=== PATIENT | male | born 1970 | race Caucasian/White ===

== ENCOUNTER 2023-02-20 20:22 | Observation (INO) | payer OTHER, SELFPAY ==
[2023-02-20 20:33] VITALS: BP 131/71; PULSE 69; RESP 18; TEMP 36.7; O2SAT 98; BMI 30.8
--- NOTE | 2023-02-20 20:36 | ED.GENADULT ---
HPI - General Adult General Chief complaint: Abdominal Pain Stated complaint: R side abd pain, sent from [facility] for CT Time Seen by Provider: 02/20/23 20:27 History of Present Illness HPI narrative: 53-year-old otherwise healthy gentleman presents to [facility] complaining of abdominal pain that began at 1:00 a.m. last night. He notes he had dinner around 8:00 p.m. and began having epigastric pain that turned into right upper quadrant pain that over the ensuing 18 hours is now localizing into the right lower quadrant. Evaluation at [facility] included blood work showing normal chemistries but white count at 18.3 an urinalysis that was unremarkable. Bedside ultrasound was obscured by gas and gallbladder was not easily seen. He sent over to [facility] for further evaluation in anticipation of abdominal CT scan. On arrival in the emergency department, history is stated is confirmed. Noted that his pain is definitely now localizing to the right lower quadrant it has progressively gotten worse over the intervening time frame. He is had multiple episode of dry heaves but no actual vomitus. Had 4 smaller bowel movements over the course of today that did not relieve his pain. There was no blood noticed in the stool. He is not complaining of chest pain, dyspnea, palpitations, headaches but does note that he is had some chills without fever Related Data Previous Rx's Medication Instructions Recorded docusate sodium 100 mg capsule 100 mg PO BID #30 caps 02/21/23 ibuprofen 400 mg tablet 800 mg PO Q6HR #30 tabs 02/21/23 oxycodone-acetaminophen 5 mg-325 2 tab PO Q6HR PRN Pain, Moderate 02/21/23 mg tablet (4-6) #20 tabs Allergies Allergy/AdvReac Type Severity Reaction Status Date / Time No Known Drug Allergies Allergy Verified 02/20/23 20:33 Review of Systems Review of Systems Narrative: Remainder of complete review of systems is otherwise unremarkable except for that included in the HPI. Patient History Social History household members: spouse Smoking Status: Never smoker alcohol intake: never Exam Initial Vital Signs Initial Vital Signs: Vital Signs Temperature 98.1 F 02/20/23 20:33 Pulse Rate 69 02/20/23 20:33 Respiratory Rate 18 02/20/23 20:33 Blood Pressure 131/71 02/20/23 20:33 Pulse Oximetry 98 02/20/23 20:33 Oxygen Delivery Method Room Air 02/20/23 20:33 General: Healthy appearing, in no acute distress. Able to give a complete and coherent history. Well-nourished well-developed HEENT: Moist mucous membranes, normal sclera with reactive pupils, Neck: No JVD, supple Respiratory: Lungs are clear to auscultation, no wheezing no rales no rhonchi. Full and symmetrical air movement Cardiac: Regular rate and rhythm no murmurs no bruits Abdomen: Soft, tenderness in the right lower quadrant closer to the anterior iliac crest than deep in the pelvis. No significant epigastric or left upper quadrant tenderness. Minor tenderness in the right upper quadrant that actually causes the right lower quadrant pain. Good bowel tones, no flank pain Skin: Warm and dry, no rashes Neurologic: Grossly neurologically intact with no obvious asymmetries or abnormalities Extremities: No trauma, well perfused Psych: Cooperative, appropriate insight and affect Course Orders Ordered: Acetaminophen (Acetaminophen 325 Mg Tablet) 325 mg PO Q6H PRN PRN Reason: Pain, Moderate (4-6) Acetaminophen (Acetaminophen 325 Mg Tablet) 650 mg PO Q6H PRN PRN Reason: Fever/Mild Pain (0-3) Docusate Sodium (Docusate 100 Mg Capsule) 100 mg PO BID [facility] Last Admin: 02/21/23 21:09 Dose: Not Given Documented By: Admin: 02/21/23 12:24 Dose: 100 mg Documented By: ABIMAEL Enoxaparin Sodium (Enoxaparin 40 Mg/0.4 Ml Syringe) 40 mg SUBCUT DAILY [facility] Last Admin: 02/21/23 09:28 Dose: Not Given Documented By: ABIMAEL Hydromorphone HCl (Hydromorphone 1 Mg Inj) 1 mg IV Q2H PRN PRN Reason: Pain, Severe (7-10) Hydromorphone HCl (Hydromorphone 0.5 Mg Inj) 0.5 mg IV Q2H PRN PRN Reason: Pain, Moderate (4-6) Last Admin: 02/21/23 04:30 Dose: 0.5 mg Documented By: ANDREE Sodium Chloride (Normal Saline 0.9%) 1,000 mls @ 125 mls/hr IV CONT [facility] Last Admin: 02/21/23 20:13 Dose: 125 mls/hr Documented By: Infusion: 02/21/23 19:39 Dose: 125 mls/hr Documented By: Admin: 02/21/23 11:39 Dose: 125 mls/hr Documented By: Infusion: 02/21/23 05:42 Dose: 125 mls/hr Documented By: Admin: 02/20/23 21:42 Dose: 125 mls/hr Documented By: SHAINA Ibuprofen (Ibuprofen 400 Mg Tablet) 800 mg PO Q6HR [facility] Last Admin: 02/22/23 00:37 Dose: 800 mg Documented By: Admin: 02/21/23 17:04 Dose: Not Given Documented By: Admin: 02/21/23 12:24 Dose: 800 mg Documented By: ABIMAEL Naloxone HCl (Naloxone 0.4 Mg/Ml Vial) 0.2 mg IV Q2MIN PRN PRN Reason: Opiate Reversal Ondansetron HCl (Ondansetron 4 Mg/2 Ml Inj) 4 mg IV Q4HR PRN PRN Reason: Nausea And Vomiting Last Admin: 02/21/23 04:40 Dose: 4 mg Documented By: ANDREE Oxycodone/Acetaminophen (Oxycodone/Acetaminophen 5/325 Tablet) 1 tab PO Q6HR PRN PRN Reason: Pain, Mild (1-3) Oxycodone/Acetaminophen (Oxycodone/Acetaminophen 5/325 Tablet) 2 tab PO Q6HR PRN PRN Reason: Pain, Moderate (4-6) Discontinued Medications Acetaminophen (Acetaminophen 325 Mg Tablet) 975 mg PO Q6H [facility] Last Admin: 02/21/23 06:18 Dose: 975 mg Documented By: Admin: 02/21/23 04:47 Dose: Not Given Documented By: Admin: 02/20/23 22:55 Dose: 975 mg Documented By: ANDREE Acetaminophen (Acetaminophen 325 Mg Tablet) 975 mg PO Q6H PRN PRN Reason: pain Bupivacaine HCl (Bupivacaine 0.5% (Pf) 30 Ml Vial) 30 ml INJ NOW ONE Stop: 02/21/23 09:35 Last Admin: 02/21/23 09:34 Dose: 30 ml Documented By: ASCENCION Epinephrine HCl (Epinephrine 1 Mg/Ml) 0.15 mg INJ NOW ONE Stop: 02/21/23 09:33 Last Admin: 02/21/23 11:31 Dose: Not Given Documented By: ABIMAEL Hydromorphone HCl (Hydromorphone 0.5 Mg Inj) 0.5 mg IV Q15MIN PRN PRN Reason: Pain, Hydromorphone HCl (Hydromorphone 2 Mg Inj) 0 mg IV Q5M PRN PRN Reason: Pain, Severe (7-10) Hydromorphone HCl (Hydromorphone 2 Mg Inj) 0 mg IV Q5M PRN PRN Reason: Pain, Moderate (4-6) Hydromorphone HCl (Hydromorphone 2 Mg Inj) 0 mg IV Q5MIN PRN PRN Reason: Pain, Mild (1-3) Piperacillin Sod/Tazobactam (Sod 3.375 gm/ Sodium Chloride) 100 mls @ 25 mls/hr IV Q8H SUPRIYA Piperacillin Sod/Tazobactam (Sod 3.375 gm/ Sodium Chloride) 100 mls @ 25 mls/hr IV Q8H SUPRIYA Stop: 02/22/23 05:00 Last Admin: 02/22/23 00:36 Dose: 25 mls/hr Documented By: Infusion: 02/21/23 19:15 Dose: 0 mls/hr Documented By: Admin: 02/21/23 15:13 Dose: 25 mls/hr Documented By: Infusion: 02/21/23 10:52 Dose: 0 mls/hr Documented By: Infusion: 02/21/23 09:38 Dose: 25 mls/hr Documented By: Admin: 02/21/23 09:23 Dose: 25 mls/hr Documented By: Infusion: 02/21/23 03:53 Dose: 25 mls/hr Documented By: Admin: 02/20/23 23:53 Dose: 25 mls/hr Documented By: Piperacillin Sod/Tazobactam (Sod 4.5 gm/ Sodium Chloride) 100 mls @ 25 mls/hr IV Q8H SUPRIYA Sodium Chloride (Normal Saline 0.9%) 1,000 mls @ 1,000 mls/hr IV BOLUS ONE Stop: 02/21/23 07:16 Last Infusion: 02/21/23 13:24 Dose: 0 mls/hr Documented By: Admin: 02/21/23 06:20 Dose: 1,000 mls/hr Documented By: ANDREE Lactated Ringer's (Lactated Ringers) 1,000 mls @ 42 mls/hr IV CONT [facility]PR[facility] Last Admin: 02/21/23 10:53 Dose: 42 mls/hr Documented By: Infusion: 02/21/23 10:52 Dose: 0 mls/hr Documented By: Admin: 02/21/23 10:10 Dose: 42 mls/hr Documented By: Infusion: 02/21/23 10:10 Dose: 42 mls/hr Documented By: Admin: 02/21/23 08:52 Dose: 42 mls/hr Documented By: ISSAC Ketorolac Tromethamine (Ketorolac 30 Mg/Ml Vial) 30 mg IV Q6H [facility] Stop: 02/25/23 22:28 Last Admin: 02/21/23 11:43 Dose: 30 mg Documented By: Admin: 02/21/23 04:28 Dose: 30 mg Documented By: Admin: 02/20/23 22:56 Dose: 30 mg Documented By: ANDREE Ondansetron HCl (Ondansetron 4 Mg/2 Ml Inj) 4 mg IV Q4HR PRN PRN Reason: nausea Ondansetron HCl (Ondansetron 4 Mg/2 Ml Inj) 4 mg IV NOW PRN PRN Reason: Nausea And Vomiting Oxycodone HCl (Oxycodone Ir 5 Mg Tablet) 5 mg PO PACUNOW PRN PRN Reason: Mild or moderate pain Medical Decision Making Lab Data 02/21/23 12:20 Labs: Urine Dip Bedside Urine Glucose Negative Bedside Urine Bilirubin - Negative Bedside Urine Ketone +/- 5 Urine Specific [place] 1.025 Bedside Urine Occult Blood - Negative Bedside Urine pH 6 Bedside Urine Protein - Negative Bedside Urine Urobilinogen - Negative Bedside Urine Nitrite - Negative Bedside Urine Leukocytes - Negative Esterase Point of care testing: Urine Dip Bedside Urine Glucose Negative Bedside Urine Bilirubin - Negative Bedside Urine Ketone +/- 5 Urine Specific [place] 1.025 Bedside Urine Occult Blood - Negative Bedside Urine pH 6 Bedside Urine Protein - Negative Bedside Urine Urobilinogen - Negative Bedside Urine Nitrite - Negative Bedside Urine Leukocytes - Negative Esterase MDM Narrative Medical decision making narrative: CC: Right lower quadrant pain, acute on diagnosed with uncertain prognosis Data collected from: patient, Social determinants of health that may influence the patients condition: Does live on Wednesday Medical records reviewed: From ER visit earlier this morning at [facility] with blood work and physician note reviewed Differential considered: Appendicitis, pyelonephritis, kidney stone, cholecystitis, constipation, other inflammatory bowel finding Exam documented above, pertinent findings include: Not toxic but is increasingly tender in the right lower quadrant without rebound or guarding. Lab Test results independently reviewed as above. Pertinent findings: Labs reviewed from Wednesday and indicate a CBC consistent with white count at 18.3 and hemoglobin of 15.3. Chemistries are unremarkable specifically bilirubin alkaline phosphatase AST ALT are all normal. Lipase is normal Urinalysis is unremarkable specifically no hemoglobin EKG does not show any acute changes Imaging studies independently reviewed: CT study is positive for acute appendicitis with 0.8 cm appendicolith appreciated. No signs of acute perforation. Consultations:Dr Hickman, accepts admit Treatments: Patient was given a L of fluid, IV Zofran and IV Zosyn prior to arrival at [place] emergency department Discussion: Findings of acute appendicitis or discussed with patient and his . Plans for admission explained as well as probability surgery later in the day. Questions are answered and he is safe for transfer to the floor Discharge Plan Departure Patient Disposition: Admitted As Inpatient Clinical Impression: Appendicitis Admit Date/Time: 02/20/23 21:30 Admit Provider: Angy Hickman
--- NOTE | 2023-02-20 20:44 | DI.CT.S_ITS ---
PROCEDURE: CT ABDOMEN PELVIS W CON INDICATIONS: RLQ abd pain TECHNIQUE: After the administration of intravenous contrast, axial sections acquired from the lung bases to the pubic symphysis. Coronal and sagittal reformats were performed. For radiation dose reduction, the following was used: automated exposure control, adjustment of mA and/or kV according to patient size. COMPARISON: None. FINDINGS: Image quality: Excellent. Lung bases: Unremarkable. Heart: No significant findings. ABDOMEN: Liver: Unremarkable. Gallbladder: Normal. Biliary ducts: Unremarkable. Pancreas: Unremarkable. Spleen: Unremarkable. Adrenal Glands: Unremarkable. Kidneys and Ureters: Unremarkable. Stomach and Bowel: Stomach, small bowel loops, and colon are unremarkable. Peritoneum: No abnormal intraperitoneal fluid. No free air. Ventral Wall: No hernias. Abdominal Nodes: No retroperitoneal or mesenteric adenopathy by size criteria. Vessels: Aorta and inferior vena cava are normal in size. PELVIS: Pelvic Organs: Unremarkable. Bladder: Unremarkable. Pelvic Nodes: No enlarged lymph nodes. Miscellaneous: No hernias are seen. At the right lower quadrant the appendix is dilated by fluid measuring up to 1.2 cm in diameter and there is a proximal appendicolith measuring up to 8 mm within the base of the appendix. There is no sign of periappendiceal abscess. Bones: Unremarkable. IMPRESSION: Acute appendicitis without evidence of early perforation in this setting of significant distension of the appendix and presence of a appendicoliths at the appendiceal base. Findings immediately called to the emergency room physician caring for the patient. Dictated by: Javid Morales M.D. on 02/20/2023 at 21:19 Approved by: Javid Morales M.D. on 02/20/2023 at 21:22
[2023-02-20] MEDS: SODIUM CHLORIDE 0.9% 1,000 ML 125 ML IV (21:42)
[2023-02-20 22:09] LABS: COVID19 -Nasal RAPID Negative (Negative)
[2023-02-20 22:10] VITALS: BP 121/65; PULSE 66; RESP 19; TEMP 36.2; O2SAT 99
[2023-02-20 22:11] VITALS: BMI 30.8
[2023-02-20] MEDS: ACETAMINOPHEN 325 MG TABLET 975 MG PO (22:55)
[2023-02-20] MEDS: KETOROLAC 30 MG/ML VIAL IV (22:56)
[2023-02-20] MEDS: PIPERACILLIN/TAZO 3.375 GM in SODIUM CHLORIDE 0.9% 100 ML IV (23:53)
[2023-02-21] VITALS (21 sets, daily range): BP systolic 85–138; BP diastolic 40–78; PULSE 62–98; RESP 11–24; TEMP 36.7–39.5; O2SAT 91–99; BMI 30.8
[2023-02-21] MEDS: KETOROLAC 30 MG/ML VIAL IV ×2 (04:28→11:43)
[2023-02-21] MEDS: HYDROMORPHONE 0.5 MG INJ IV (04:30)
[2023-02-21] MEDS: ONDANSETRON 4 MG/2 ML INJ IV (04:40)
--- NOTE | 2023-02-21 04:51 | PC.NURSE ---
pt admitted preop for Appendicitis, oriented to Room and Routine, A&OX4, RA independendent ambulation. pt is c/o moderate pain to RLQ and stated he had been very nauseous until medicated with Zofran. IV NS @125/hr with intermittent IV ABX pordered. Pt medicated with Tylenol and ibuprofen with good relief of discomfort . Pt slept for several hours hours. Pt awoke to go to bathroom and on the way back to the bed the pt began to shiver and has severe back spasm. Pt called the RN who medicated with Scheduled Toradol and 0.5mg IVP Diluadid. Pt then became Nauseous and was medicated to Zofran with good relief. pt resting comfortably at this time.
[2023-02-21] MEDS: ACETAMINOPHEN 325 MG TABLET 975 MG PO (06:18)
[2023-02-21] MEDS: SODIUM CHLORIDE 0.9% 1,000 ML 1000 ML IV (06:20)
--- NOTE | 2023-02-21 08:40 | PC.NURSE ---
Day shift: Pt off unit for procedure at approx 0840.
--- NOTE | 2023-02-21 08:46 | P.HP_ITS ---
History of Present Illness History of Present Illness Date Patient Seen: 02/21/23 Time Patient Seen: 08:46 Chief complaint: R side abd pain, sent from [facility] for [place] Narrative: Healthy 53-year-old male presents to the emergency room with 1 day of abdominal pain. Last night he awoke from sleep and felt sick like he had ?ate something lousy? he had a bowel movement at that time but he did not get any relief from his pain with that. Around 3:00 a.m. the same day he woke up again and started dry heaving and was really nauseous until about 11:00 a.m. when the pain became so intense that he decided around 1:00 p.m. to go to the hospital. He states that the pain started sort of in the middle and localized to the right lower quadrant around 10:00 a.m. or so. He is never had any pain like this before. Although at least 10 years ago he thought maybe he was having some issues with his gallbladder and had some pain in his right upper quadrant on occasion. However he states that he has not had anything like that for at least 10 years and has no other food sensitivities or digestive issues. He is healthy takes no medications has no allergies and has had surgery on his wrist knee and biceps. He has no family history of bleeding or blood clotting disorders or problems with anesthesia. [facility] Social History household members: spouse Smoking Status: Never smoker Meds Home Medications and Allergies Allergies Allergy/AdvReac Type Severity Reaction Status Date / Time No Known Drug Allergies Allergy Verified 02/20/23 20:33 Exam Vital Signs (past 8 hours): - 02/21/23 04:48 02/21/23 05:43 02/21/23 06:12 Temperature 98.2 F 103.1 F H 102.2 F H Pulse Rate 98 H 88 86 Respiratory Rate 22 18 24 Blood Pressure 138/78 94/44 L 97/43 L Pulse Oximetry 98 92 97 Oxygen Delivery Method Oxygen Flow Rate 0 2 2 02/21/23 06:00 02/21/23 06:18 02/21/23 06:40 Temperature 102.5 F H 100.6 F H Pulse Rate 86 Respiratory Rate 18 Blood Pressure 87/41 L Pulse Oximetry 92 Oxygen Delivery Method Oxygen Flow Rate 2 02/21/23 07:33 Temperature Pulse Rate Respiratory Rate Blood Pressure Pulse Oximetry 95 Oxygen Delivery Method Room Air Oxygen Flow Rate Oxygen Delivery Method Room Air Oxygen Flow Rate 2 Const General: cooperative, healthy appearing and comfortable Orientation: alert, awake and oriented x3 HENMT Head: normal to inspection Eyes General: appearance normal, both eyes and all related structures Resp Effort & Inspection: normal respiratory effort and able to speak in complete sentences GI Palpation: soft and tender (Right lower quadrant tenderness to palpation.) Extrem General: normal to inspection Objective Labs Labs: Laboratory Results - last 24 hr 02/20/23 21:40 SARS-CoV-2 (PCR) Negative Assessment & Plan Assessment and plan (1) Appendicitis: Status: Acute Assessment & Plan narrative: I discussed the risks benefits and alternatives of laparoscopic appendectomy including but not limited to bleeding infection need for further hospitalizations or procedures. Injury to organs requiring 2nd operation to repair a complication. I also discussed the occasional need to create an open incision. He understands all of these risks and would like to proceed. He also understands that IV antibiotics can be used to treat appendicitis but would like to proceed with surgery. His is at the bedside and has heard this entire discussion and is in agreement with the plan.
[2023-02-21] MEDS: LACTATED RINGERS 1,000 ML 42 ML IV ×3 (08:52→10:53)
[2023-02-21] MEDS: PIPERACILLIN/TAZO 3.375 GM in SODIUM CHLORIDE 0.9% 100 ML IV ×2 (09:23→15:13)
--- NOTE | 2023-02-21 09:29 | SUR.OPER ---
Supine on padded OR bed, head on pillow, arms padded and tucked at sides, legs uncrossed, safety belt at thigh, tape over blanket over lower legs .
[2023-02-21] MEDS: BUPIVACAINE 0.5% (PF) 30 ML VIAL INJ (09:34)
--- NOTE | 2023-02-21 10:45 | PATH_ITS ---
[facility] Accession Number: [id number] No. of containers..01 Tissue . 01 Material submitted: . appendix - APPENDIX . 01 Clinical history: . R SIDE ABD PAIN, SENT FROM [facility] FOR CT . 01 Diagnosis: Vermiform Appendix, Appendectomy: Acute transmural appendicitis and periappendicitis. Negative for neoplasia. [facility] 02/24/2023 1650 Local . 01 Electronically signed: . Venessa Albert MD, Pathologist NPI- [id number] . 01 Gross description: . The specimen is received in formalin labeled with the patient's name, , and appendix, and consists of a vermiform appendix measuring 8.3 x 0.9 cm with a large amount of mesoappendix extending out to 3.5 cm. The margin is received closed with guilherme, which are removed, and the margin is inked blue. The serosa is correa to brown and smooth with adherent correa material consistent with exudate. Sectioning reveals a patent lumen filled with red-brown semi-solid material and ranging from 0.3 to 0.5 cm in diameter. The currie are correa to brown, grossly intact, and average 0.2 cm thick. Body Stylist sections to include the margin, one-half of the bisected distal tip, and cross section are submitted in cassette A1. ([id number]) /MRV 02/23/2023 1431 Local . 01 Pathologist provided ICD-10: K35.80 . 01 CPT . 001892 Specimen Comment: A courtesy copy of this report has been sent to [facility] Pathology Performed at: 01 [facility] [address] [place] [address] [address], [place], [place] [id number] MD Raghu Luis MD Phone: [phone]
--- NOTE | 2023-02-21 11:27 | PC.NURSE ---
Day shift: Back in room from PACU at approx 1120. A&Ox4. The 3 lap sites CDI. Denies nausea. Reports ABD pain /. SO in room for support. Will continue with post-op plan of care.
[2023-02-21] MEDS: SODIUM CHLORIDE 0.9% 1,000 ML 125 ML IV ×2 (11:39→20:13)
[2023-02-21] MEDS: IBUPROFEN 400 MG TABLET 800 MG PO (12:24)
[2023-02-21] MEDS: DOCUSATE 100 MG CAPSULE PO (12:24)
[2023-02-21 12:45] LABS: Estimated Glomerular Filt Rate > 60 mL/min (>60)
--- NOTE | 2023-02-21 13:46 | CM.DANOTE ---
Patient is a 53 yo male who was admitted on 02/20/23 for Abd Pain. Pt has [employer] for insurance and his PCP is not listed. EMR was reviewed. Per Surgeon, pt recommendation is Lap Appe and pt agreeable and off the floor for surgical intervention this morning around 0900. Per RN, pt returned to floor and pain seems managed and has supportive spouse bedside. SW met briefly bedside with pt and explained role and he confirms that he lives with his on Wednesday and is active and independent at baseline and does not use DME and no hx of HH or SNF. Pt does not anticipate any needs and states spouse can assist if needed at d/c. Preference is home when medically stable. Plan; SW to follow closely for plan of likely d/c home via spouse POV when medically stable and any further identified discharge planning needs. NADER Cramer Discharge Planning/Care Management CM Discharge Assessment Start: 02/21/23 13:45 Freq: Status: Active Protocol: Document 02/21/23 13:45 BF (Rec: 02/21/23 13:46 BF [id number]) Discharge Planning Assessment Assigned Reel And Rewinder Operator NADER Helton DPOA/Assigned Designee Name informally spouse Sandro Contact Information [phone] Advance Directives? No Advance Directives on File No History Provided By Patient,Family Member,Medical Record Has Patient been admitted in last 30 No days? Prior Living Arrangements House Household Members spouse Type of transporation used prior to Drives own vehicle admit Independent with ADL's Yes Is patient alert and oriented? Yes Caregiver for Another No Barriers to Discharge No Discharge Plan Home Transportation Arrangement spouse bedside Referrals Initiated None needed Additional Comment Pending progress from Shirley Marche Whiteboard Updated in Patient Room with Yes name and ext. # of Reel And Rewinder Operator Review Status In Process Please Provide Date Initial DC 02/21/23 Assessment Was Performed Next Review Type Continued Stay Review
--- NOTE | 2023-02-21 16:30 | P.OP_ITS ---
Operative Date/Time/Diagnoses Date of procedure: 02/21/23 Pre-op diagnosis: Acute appendicitis Post-op diagnosis: same Procedure & Clinicians Procedure: Laparoscopic appendectomy Same procedure as scheduled: Yes Surgeon: Angy Hickman Click Yes if Unassisted: Yes Anesthesia Type: General Operative Notes Findings: Acutely inflamed appendix. Photograph obtained. Specimen(s): other (Appendix) Procedure in detail: Patient was taken to the operating room and placed supine on the operating room table with left arm tucked. Time-out was performed and general endotracheal anesthesia was induced after placing bilateral SCDs and providing IV antibiotics. The abdomen was then prepped and draped in the usual sterile fashion. Local anesthetic was infused above the umbilicus and an 11 blade sca lpel was used to carry this incision down through subcutaneous tissue. The anterior abdominal wall fascia was doubly clasped with Sophie retractor and entered sharply with an 11 blade scalpel under direct visualization. Two 0 Vicryl stay sutures on UR6 needle were placed. The Matilde trocar was then introduced into the abdomen and the abdomen was insufflated. The 5 mm 30 degree scope was introduced and the abdomen was inspected. At the beginning of the case there was some small bowel seemingly adhered to the anterior abdominal wall near by the Matilde trocar. There was no evidence of entry injury. There was fluid in the abdomen and there was inflammatory process occurring in the right lower quadrant. At this time additional accessory 5 mm trocars were placed after infusing local anesthesia under direct visualization in the suprapubic and left lateral positions. Graspers were then used to explore the right lower quadrant and the appendix was easily identified anteriorly. Was markedly inflamed but the base of the appendix looked good. The mid area and the tip were markedly inflamed and a photograph was taken. A window was created at the base of the appendix and laparoscopic stapler was placed through this window to come across the base of the appendix. Next a laparoscopic stapler with a vascular load was used to come across the appendiceal mesentery. A 2nd load was needed to complete this. The appendix was then placed in an Endo-Catch bag and removed through the umbilical port site. The remainder of the abdomen was inspected and a Ray-Elo was placed into the abdomen to soak up some blood and fluid and removed. The staple lines appeared hemostatic and that bowel loop had fallen down in the interim and it was inspected very carefully with the laparoscope but appeared normal. No other evidence of injuries or other concerns were apparent. The accessory trocars were then removed under direct visualization and the abdomen was desufflated. The Matilde trocar was removed and an additional 0 Vicryl suture with a [id number] was placed between the 2 previously placed stay sutures. These were tied to close the fascial defect. The skin was closed with running 4-0 Monocryl and dressed with Steri-Strips. Patient tolerated the procedure well and went in good condition to the postoperative care unit EBL was minimal and there were no complications.
[2023-02-22] VITALS: BP 93/47; PULSE 80; RESP 18; TEMP 36.9; O2SAT 98
[2023-02-22 00:10] VITALS: BP 95/52; PULSE 78
[2023-02-22] MEDS: PIPERACILLIN/TAZO 3.375 GM in SODIUM CHLORIDE 0.9% 100 ML IV (00:36)
[2023-02-22] MEDS: IBUPROFEN 400 MG TABLET 800 MG PO (00:37)
[2023-02-22 05:00] VITALS: BP 95/53; PULSE 56; RESP 16; TEMP 36.6; O2SAT 99
[2023-02-22 07:00] VITALS: O2SAT 99
[2023-02-22 08:00] VITALS: BP 102/56; PULSE 53; RESP 16; TEMP 36.2; O2SAT 99
--- NOTE | 2023-02-22 09:41 | P.DS_ITS ---
History of Present Illness History of Present Illness Date Patient Seen: 02/22/23 Time Patient Seen: 09:42 Chief complaint: R side abd pain, sent from wednesday for CT Narrative: Healthy 53-year-old male presents to the emergency room with 1 day of abdominal pain. Last night he awoke from sleep and felt sick like he had ?ate something lousy? he had a bowel movement at that time but he did not get any relief from his pain with that. Around 3:00 a.m. the same day he woke up again and started dry heaving and was really nauseous until about 11:00 a.m. when the pain became so intense that he decided around 1:00 p.m. to go to the hospital. He states that the pain started sort of in the middle and localized to the right lower quadrant around 10:00 a.m. or so. He is never had any pain like this before. Although at least 10 years ago he thought maybe he was having some issues with his gallbladder and had some pain in his right upper quadrant on occasion. However he states that he has not had anything like that for at least 10 years and has no other food sensitivities or digestive issues. He is healthy takes no medications has no allergies and has had surgery on his wrist knee and biceps. He has no family history of bleeding or blood clotting disorders or problems with anesthesia. Discharge Providers Provider Date of admission: 02/20/23 21:30 Discharge Date: 02/22/23 Discharge provider: Angy Hickman MD Summary Hospital Course Discharge Diagnosis: Acute appendicitis Hospital Course: Patient was admitted to the hospital and underwent a laparoscopic appendectomy that was uneventful. He was discharged home on postoperative day 1 in good condition after tolerating regular food and having his pain controlled with oral pain medicines and being able to walk around easily without assistance. Status at Discharge Cognitive/behavioral status at discharge: at baseline, oriented Functional status at discharge: independent ambulation Overall status at discharge: patient is back to baseline Time Spent with Patient Time spent: Less than 30 minutes Exam Vital Signs (past 8 hours): - 02/22/23 05:00 02/22/23 08:00 Temperature 97.8 F 97.1 F L Pulse Rate 56 L 53 L Respiratory Rate 16 16 Blood Pressure 95/53 L 102/56 L Pulse Oximetry 99 99 Oxygen Flow Rate 0 Oxygen Delivery Method Room Air Oxygen Flow Rate 0 Narrative Exam Narrative: Patient is awake alert oriented and in no acute distress. He is pleasant and appears his stated age. His abdomen is soft and minimally tender. The wounds are clean dry and intact. He is ambulatory and without any edema. Objective Labs 02/21/23 12:20 Labs: Laboratory Results - last 24 hr 02/21/23 12:20 Creatinine 1.27 H Estimated GFR > 60 PFSH Social History household members: spouse Smoking Status: Never smoker alcohol intake: never Discharge Plan Discharge Plan Patient Disposition: Home Discharge orders & Medications Prescriptions: New docusate sodium 100 mg Capsule 100 mg PO BID Qty: 30 0RF Rx Instructions: Please take while taking Percocet for pain to prevent constipation. If you become constipated you may take anything [id number] for constipation or do not hesitate to call the office of [facility] for guidance. oxycodone-acetaminophen 5-325 mg Tablet 2 tab PO Q6HR PRN (Reason: Pain, Moderate (4-6)) Qty: 20 0RF Rx Instructions: May take 1-2 tabs every 6 hours for pain. If you feel that 2 tablets is too much for you, you may take 1 tablet +1 tablet of extra-strength Tylenol at the six hour jonathon. When you no longer feel you need to take this medication for pain you may take 2 extra-strength Tylenol every 6 hours. I recommend alternating with ibuprofen so that you are taking something for pain every 3 hours. Once you are on a regimen of Tylenol and ibuprofen every 3 hours then y ou may start decreasing the amount of pain medicine you are taking. ibuprofen 400 mg Tablet 800 mg PO Q6HR Qty: 30 0RF Follow up/Referrals: Angy Hickman MD [Physician] - (Follow up in 7-10 days for postoperative checkup. If you doing well this can be done over the phone. Please call Wednesday to make an appointment) Diet/Activity/Treatments Diet: Diet as Tolerated and Regular Activity: No lifting greater than 30 lb for 4 weeks after surgery. Do not do any strenuous activity. Normal activity such as walking outside and climbing stairs, is ok. If you notice pain, stop. You may drive when you no longer are taking Narcotic pain medication. Skin/Wound/Dressing Care Report to your healthcare provider any signs of infection, such as:: chills, fever, night sweats, increased pain, unusual drainage and unusual redness Dressing: Ok to shower, let water run over it, don't scrub. No ointments. Pat dry afterwards. No tub baths, and don't soak underwater, for 2 weeks. There are Steristrips covering the wound but also stitches under the skin which will dissolve. Visit Report/Discharge Packet Stand Alone Forms: Patient Portal/API, Stroke Signs & Symptoms Discharge Data Primary Care Provider: Mary,Doctor Attending Provider: Angy Hickman Admit Date/Time: 02/20/23 21:30 Discharges patient from system. Discharge Date/Time: 02/22/23 11:10
--- NOTE | 2023-02-22 11:19 | PC.NURSE ---
Pt is A&OX4, VSS, afebrile on RA. He is tolerating breakfast and ambulating in the room without difficulty. He reports passing gas and abdomen is soft, slightly tender with +BSx4. Incision sites with steri strips c/d/i, w/o swelling or redness. He states he is eager to discharge home today. supportive at bedside. He is cleared for discharge this a.m. at approximately 10 a.m. He and his verbalize understanding of activity restrictions, medications,site care, and follow up appointment in 7-10 days with MD Hickman. He is escorted via w/ch to private vehicle with and all of his belongings at approximately 11:10 a.m.
== END 2023-02-22 11:10 | disposition home or self-care (01) ==
LOC: ED 20:36 → AC 21:31
PROVIDERS: Admitting Provider Surgery; Emergency Provider Emergency Medicine; Referring Provider Emergency Medicine; Visit Provider Surgery
PROC: 0DTJ4ZZ Resection of Appendix, Percutaneous Endoscopic Approach (ICD-10-PCS; CPT 44970; principal; 2023-02-21 09:30)
DX: R10.9 Unspecified abdominal pain (principal); Z20.822 Contact with and (suspected) exposure to COVID-19; K35.80 Unspecified acute appendicitis
CPT/HCPCS: 44970; 36415; 74177; 81003; 82565; 87635; 99222; 99283; C9803; G0378; J0330; J1100; J1170; J1885; J2250; J2405; J2543; J2704; J3010; Q9967